=== PATIENT | female | born 1985 ===

== ENCOUNTER 2018-08-18 15:02 | Inpatient (IN) | payer OTHER ==
[~2018-08-18] VITALS: Ht 157.5 cm; Wt 63.5 kg
[2018-09-14] MEDS ORDERED: IRON325 MG PO (08:12)
[2018-09-14] MEDS ORDERED: PRENATAL TABLE1 EAC2 PO (08:12)
== END 2018-09-16 13:59 | disposition home or self-care (01) | DRG 768 ==
LOC: OB/GYN 09-14 07:00 → LDR 09-14 07:00 → OB/GYN 09-14 18:11
PROVIDERS: ADMIT Obstetrics & Gynecology
PROC: 10E0XZZ Delivery of Products of Conception, External Approach (ICD-10-PCS; principal; 2018-09-14)
PROC: 0DQR0ZZ Repair Anal Sphincter, Open Approach (ICD-10-PCS; 2018-09-14)
PROC: 0DQP0ZZ Repair Rectum, Open Approach (ICD-10-PCS; 2018-09-14)
PROC: 0W8NXZZ Division of Female Perineum, External Approach (ICD-10-PCS; 2018-09-14)
PROC: 4A1HXCZ Monitoring of Products of Conception, Cardiac Rate, External Approach (ICD-10-PCS; 2018-09-14)
DX: O70.3 Fourth degree perineal laceration during delivery (principal); Z37.0 Single live birth; Z3A.39 39 weeks gestation of pregnancy; Z22.330 Carrier of Group B streptococcus

== ENCOUNTER 2018-09-08 15:26 | Outpatient (CLI) | payer OTHER | END 2018-09-08 18:39 | disposition home or self-care (01) | LOC: NST 15:26 | DX: Z34.83 Encounter for supervision of other normal pregnancy, third trimester (principal) ==